=== PATIENT | female | born 1990 | race Caucasian/White ===

== ENCOUNTER 2016-10-28 09:52 | Emergency (ER) | payer SELFPAY ==
[~2016-10-28] VITALS: Ht 172.7 cm; Wt 59.0 kg
[2016-10-28 10:00] VITALS: BP 138/78
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
[2016-10-28] MEDS ORDERED: IBUPROFEN 800 MG TABLET. PO ONE (11:00)
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
== END 2016-10-28 11:35 | disposition home or self-care (01) ==
LOC: ER 10:27
DX: S20.212A Contusion of left front wall of thorax, initial encounter (principal); Y08.89XA Assault by other specified means, initial encounter; Y93.89 Activity, other specified; Y92.89 Other specified places as the place of occurrence of the external cause; Y99.8 Other external cause status
CPT/HCPCS: 71101; 81025; 99284-25

== ENCOUNTER 2019-08-14 21:07 | Emergency (ER) | payer MEDICAID ==
[~2019-08-14] VITALS: Ht 172.7 cm; Wt 59.0 kg
[2019-08-14 21:20] VITALS: BP 154/81
[2019-08-14] MEDS ORDERED: NAPROXEN 500 MG TABLET PO ONE (21:30)
[2019-08-14] MEDS ORDERED: AMOX500T PO (21:32)
[2019-08-14] MEDS ORDERED: NAPR-695 PO (21:33)
--- NOTE | 2019-08-14 21:33 | PHYS DOC ---
Past Medical History Past Medical History: Other Additional Past Medical Histor: hip dysplasia, opiate abuse Past Surgical History: , Other Additional Past Surgical Histo: lt. pinky x3, bilat plates on hips Smoking Status: Current Every Day Smoker Alcohol Use: None Drug Use: None Adult General Chief Complaint Chief Complaint: DENTAL PROBLEM HPI HPI Patient is a 29 year old female who presents to the emergency department with complaints of dental pain in the left upper quadrant since last night. Patient states she has a history of a cavity in tooth #3, but she missed a recent dental appointment for a filling. She denies any pus or drainage from the affected area. She denies any fever, cough, shortness of breath, sore throat, ear pain, headache, nausea, vomiting, or vision changes. She currently rates her pain a 4 out of 10 on the pain scale, she denies any alleviating factors and states that the pain has been constant. Review of Systems Review of Systems Complete ROS is negative unless otherwise noted in HPI. Current Medications Current Medications Current Medications Medications (Trade) Dose Ordered Sig/Shabnam Start Time Stop Time Status Last Admin Dose Admin Naproxen (Naprosyn) 500 mg 1X ONCE 08/14/19 21:30 08/14/19 21:31 DC Allergies Allergies Allergies Coded Allergies Type Severity Reaction Last Updated Verified No Known Drug Allergies 01/08/15 No Physical Exam Physical Exam See Above Constitutional: Well developed, well nourished, no acute distress, non-toxic appearance. [] HENT: Normocephalic, atraumatic, bilateral external ears normal, oropharynx moist, no oral exudates, nose normal; missing tooth #4, diffuse decay noted to tooth #3, no visible abscess, mild erythema and swelling of surrounding gingiva. [] Eyes: PERRLA, EOMI, conjunctiva normal, no discharge. [] Neck: Normal range of motion, no tenderness, supple, no stridor. [] Cardiovascular:Heart rate regular rhythm Lungs & Thorax: Respirations even and unlabored, no retractions, no respiratory distress Skin: Warm, dry, no erythema, no rash. [] Extremities: No cyanosis, ROM intact, no edema. [] Neurologic: Alert and oriented X 3, no focal deficits noted. [] Psychologic: Affect normal, judgement normal, mood normal. [] Current Patient Data Vital Signs Vital Signs Date Time Temp Pulse Resp B/P (MAP) Pulse Ox O2 Delivery O2 Flow Rate FiO2 08/14/19 21:20 98.8 66 18 154/81 (105) 99 Room Air 98.8 EKG EKG [] Radiology/Procedures Radiology/Procedures [] Course & Med Decision Making Course & Med Decision Making Pertinent Labs and Imaging studies reviewed. (See chart for details) [] Dragon Disclaimer Dragon Disclaimer This electronic medical record was generated, in whole or in part, using a voice recognition dictation system. Departure Departure Impression: Primary Impression: Infected dental caries Additional Impression: Dentalgia Disposition: HOME, SELF-CARE Condition: STABLE Referrals: NO PCP (PCP) Patient Instructions: Dental Caries, Dental Pain, [id number] Additional Instructions: Fill prescription(s) and use as directed. Follow up with dentist using the referral list provided. Return to the ER if symptoms worsen. Scripts Naproxen (NAPROXEN) 375 Mg Tablet 1 TAB PO BID for 10 Days, #20 TAB 0 Refills Prov: MALI DAVILA APRN 08/14/19 Amoxicillin (AMOXICILLIN) 500 Mg Tablet 1 TAB PO QID for 7 Days, #28 TAB 0 Refills Prov: MALI DAVILA APRN 08/14/19 Problem Qualifiers MALI DAVILA APRN Aug 14, 2019 21:33
== END 2019-08-14 21:59 | disposition home or self-care (01) ==
LOC: ER 21:07
DX: K02.9 Dental caries, unspecified (principal); R10.12 Left upper quadrant pain; F17.200 Nicotine dependence, unspecified, uncomplicated
CPT/HCPCS: 99283